=== PATIENT | male | born 1960 | race Caucasian/White ===

== ENCOUNTER 2022-05-24 01:28 | Emergency (ER) | payer SELFPAY ==
[2022-05-24] MEDS ORDERED: ONDANSETRON 4 MG/2 ML VIAL ONE (02:58)
[2022-05-24] MEDS ORDERED: MECLIZINE HCL 12.5 MG TAB ONE (02:58)
[2022-05-24] MEDS ORDERED: NA CHLORIDE 0.9% 1,000 ML ONE (02:59)
[2022-05-24] MEDS ORDERED: FAMOTIDINE 20 MG/2 ML VIAL IV ONE (02:59)
[2022-05-24 03:43] LABS: Absolute Lymphocytes (CBC) 1.2 K/uL (0.7-4.9); Hematocrit 40.7 % (39.6-49.0); Lymphocytes % 18.8 % (15.3-44.8); MPV 7.7 fL (7.6-11.3); RBC Red Blood Cell Count 3.99 M/uL (4.33-5.43)
[2022-05-24 03:49] LABS: Protime INR 0.96
[2022-05-24 04:02] LABS: ALT/SGPT 47 U/L (16-61); AST/SGOT 29 U/L (15-37); Albumin 3.3 g/dL (3.4-5.0); Alkaline Phosphatase 58 U/L (45-117); BUN Blood Urea Nitrogen 11 mg/dL (7-18); Bicarbonate 33 mEq/L (21-32); Bilirubin Total 0.2 mg/dL (0.2-1.0); Creatine Phosphokinase 48 U/L (39-308); Glomerular Filtration Rate 89 ml/min (=/>90); Glucose Level 103 mg/dL (74-106); Magnesium 2.6 mg/dL (1.6-2.4); Potassium 4.2 mEq/L (3.5-5.1); Protein, Total 6.7 g/dL (6.4-8.2); Sodium Level 138 mEq/L (136-145); Troponin High Sensitivity 8.4 pg/mL (<58.9)
--- NOTE | 2022-05-24 04:02 | ER ---
Nurse's Notes [facility] Name: Merrick Joseph Age: 61 yrs Sex: Male : 1960 Arrival Date: 05/24/2022 Time: 01:32 Bed 16 Private MD: Diagnosis: Dizziness and giddiness;Nausea with vomiting, unspecified;Fall on same level, unspecified Presentation: 05/24 02:15 Chief complaint: Chief complaint: Patient states: he is c/o abdominal pain, x 4 days bb with nausea, vomiting and dizziness and he has been falling. 02:15 Coronavirus screen: At this time, the client does not indicate any symptoms associated bb with coronavirus-19. Ebola Screen: No symptoms or risks identified at this time. Initial Sepsis Screen: Does the patient meet any 2 criteria? No. Patient's initial sepsis screen is negative. Does the patient have a suspected source of infection? No. Patient's initial sepsis screen is negative. Risk Assessment: Do you want to hurt yourself or someone else? Patient reports no desire to harm self or others. Onset of symptoms was May 21, 2022. 02:15 Method Of Arrival: Ambulatory bb 02:15 Acuity: KILEY 3 bb Historical: - Allergies: 04:00 No Known Allergies; bb - PMHx: 04:00 TB inactive; emphysema; PTSD; bb - Immunization history:: Pfizer x 4. - Social history:: Smoking status: Patient reports the use of cigarette tobacco products, Patient/guardian denies using alcohol. Screenin:39 [facility] ED Fall Risk Assessment (Adult) History of falling in the last 3 months, bb including since admission Yes- single mechanical fall (1 pt) Confusion or Disorientation No (0 pts) Intoxicated or Sedated No (0 pts) Impaired Gait Yes (1 pt) Score/Fall Risk Level 0 - 2 = Low Risk Oriented to surroundings, Maintained a safe environment. Abuse screen: Denies threats or abuse. Nutritional screening: No deficits noted. Tuberculosis screening: No symptoms or risk factors identified. Assessment: 02:15 General: Appears in no apparent distress. comfortable, well groomed, well developed, pf1 Behavior is calm, cooperative, appropriate for age, quiet. 02:15 Pain: Complains of pain in left upper quadrant and right upper quadrant and C5 and C4 pf1 and lower abdominal pain Pain currently is 8 out of 10 on a pain scale. Neuro: Level of Consciousness is awake, alert, obeys commands, Oriented to person, place, time, situation, Reports dizziness, Patient stated that he fell on Monday due to his vertigo. Cardiovascular: No deficits noted. Capillary refill < 3 seconds Patient's skin is warm and dry. Respiratory: No deficits noted. Airway is patent Trachea midline Respiratory effort is even, unlabored, Respiratory pattern is regular, symmetrical, Breath sounds are clear bilaterally. GI: Abdomen is flat, non-distended, Bowel sounds present X 4 quads. Abd is soft X 4 quads Abdomen is tender to palpation. : No deficits noted. No signs and/or symptoms were reported regarding the genitourinary system. EENT: No deficits noted. No signs and/or symptoms were reported regarding the EENT system. Derm: No deficits noted. No signs and/or symptoms reported regarding the dermatologic system. Musculoskeletal: Reports pain in C5 and C4 since Monday. 03:15 Reassessment: Patient appears in no apparent distress at this time. Patient and/or pf1 family updated on plan of care and expected duration. Pain level reassessed. Patient is alert, oriented x 3, equal unlabored respirations, skin warm/dry/pink. Patient states feeling better. Patient states symptoms have improved. 04:39 Reassessment: Patient is alert, oriented x 3, equal unlabored respirations, skin bb warm/dry/pink. pt verbalized understanding of and agrees to plan of care discharge instructions given. Vital Signs: 02:15 BP 147 / 86; Pulse 61; Resp 18 S; Temp 97.6(O); Pulse Ox 98% on R/A; Weight 53.07 kg bb (R); Height 5 ft. 0 in. (R); Pain 8/10; 03:15 BP 144 / 88; Pulse 62; Resp 16; Pulse Ox 97% on R/A; Pain 5/10; pf1 04:15 BP 145 / 89; Pulse 65; Resp 16; Pulse Ox 97% on R/A; Pain 3/10; pf1 02:15 Body Mass Index 22.85 (53.07 kg, 152.4 cm) bb 02:15 Pain Scale: Adult bb 03:15 Pain Scale: Adult pf1 04:15 Pain Scale: Adult pf1 ED Course: 01:32 Patient arrived in ED. ja2 02:09 Dewey Saenz PA is PHCP. cp 02:09 Abel Schmidt MD is Attending Physician. cp 02:30 Arm band placed on. pf1 02:36 Carly lee, RN is Primary Nurse. pf1 02:53 XRAY Chest (1 view) In Process Unspecified. EDMS 03:14 CT Traumagram (Head C Spine CAP wo con) In Process Unspecified. EDMS 03:21 Inserted saline lock: 20 gauge in left antecubital area, using aseptic technique. Blood ah1 collected. 03:21 Basic Metabolic Panel Sent. ah1 03:21 CBC with Diff Sent. ah1 03:21 LFT's Sent. ah1 03:21 Magnesium Sent. ah1 03:21 PT-INR Sent. ah1 03:21 Troponin HS Sent. ah1 04:00 Triage completed. bb 04:39 No provider procedures requiring assistance completed. IV discontinued, intact, bb bleeding controlled, No redness/swelling at site. Pressure dressing applied. 04:39 Patient has correct armband on for positive identification. bb Administered Medications: 03:20 Drug: NS 0.9% IV 500 ml Route: IV; Rate: bolus; Site: left antecubital; pf1 04:20 Follow up: Response: No adverse reaction; Marked relief of symptoms; IV Status: pf1 Completed infusion; IV Intake: 500ml 03:20 Drug: Ondansetron IVP 4 mg Route: IVP; Site: left antecubital; pf1 04:20 Follow up: Response: No adverse reaction; Marked relief of symptoms; Nausea is decreasedpf1 03:20 Drug: Famotidine IVP 20 mg Route: IVP; Site: left antecubital; pf1 04:20 Follow up: Response: No adverse reaction; Marked relief of symptoms; Pain is decreased pf1 03:20 Drug: Meclizine PO 25 mg Route: PO; pf1 04:20 Follow up: Response: No adverse reaction; Marked relief of symptoms pf1 03:30 CANCELLED (Physician Discretion): morphine IVP or IV 2 mg IVP once over 4 mins cp 04:28 CANCELLED (Patient Refused): Diazepam IVP 2 mg IVP once pf1 04:29 Not Given (Patient Refused): fentaNYL (PF) IVP 25 mcg IVP once pf1 06:17 Not Given (Patient was dischargedd): NS 0.9% IV 500 ml IV at 125 calculated rate pf1 continuous Medication: 04:39 VIS not applicable for this client. bb Intake: 04:20 IV: 500ml; Total: 500ml. pf1 Outcome: 04:01 Discharge ordered by . sp3 04:39 Discharged to home ambulatory. bb 04:39 Condition: stable 04:39 Discharge instructions given to patient, Instructed on discharge instructions, follow up and referral plans. medication usage, Demonstrated understanding of instructions, follow-up care, medications, Prescriptions given X 2. 04:42 Patient left the ED. bb Signatures: Dispatcher [employer] EDMS Brianne Davis RN RN bb Dewey Saenz PA PA cp Patel, Setul, MD MD sp3 Yovana Rodriguez Pamala, RN RN pf1 Madeleine Yoon [facility] Corrections: (The following items were deleted from the chart) 04:00 03:56 Chief complaint: bb bb 04:28 04:19 fentaNYL (PF) IVP 25 mcg IVP in left antecubital pf1 pf1 04:28 04:19 Diazepam IVP 2 mg IVP in left antecubital pf1 pf1
--- NOTE | 2022-05-24 04:02 | EDPHYS ---
Physician Documentation [facility] Name: Merrick Joseph Age: 61 yrs Sex: Male : 1960 Arrival Date: 05/24/2022 Time: 01:32 Bed 16 Private MD: ED Physician Abel Schmidt HPI: 05/24 02:33 This 61 yrs old Male presents to ER via Unassigned with complaints of Dizziness, cp Abdominal Pain, Nausea, Repeated Falls, Cough. 02:33 The patient presents with dizziness, generalized weakness, lightheadedness, feeling off cp balance, sense of spinning. Onset: The symptoms/episode began/occurred 7 day(s) ago. Context: patient reports history of vertigo. takes prescribed Meclizine but has been unable to afford medication. Associated signs and symptoms: Pertinent positives: abdominal pain, chest pain, nausea, vomiting, 2 episodes of falling with episode this past Monday in which he struck face against ground and other episode he was caught before striking ground. 02:33 Patient's baseline: Neuro: alert and fully oriented, Motor: no deficits, Ambulation: cp walks without assistance, Speech: normal, The patient has a previous history of vertigo. Historical: - Allergies: 04:00 No Known Allergies; bb - PMHx: 04:00 TB inactive; emphysema; PTSD; bb - Immunization history:: Pfizer x 4. - Social history:: Smoking status: Patient reports the use of cigarette tobacco products, Patient/guardian denies using alcohol. ROS: 02:35 Constitutional: Positive for poor PO intake, Negative for body aches, chills, fever. cp 02:35 Eyes: Positive for blurry vision, Negative for discharge, pain, redness. cp 02:35 ENT: Negative for drainage from ear(s), ear pain, sore throat, difficulty swallowing, difficulty handling secretions. 02:35 Cardiovascular: Positive for chest pain, Negative for edema, palpitations. 02:35 Respiratory: Positive for cough, Negative for wheezing. 02:35 Abdomen/GI: Positive for abdominal pain, nausea and vomiting, Negative for diarrhea, constipation, black/tarry stool, rectal bleeding. 02:35 Back: Positive for pain at rest, pain with movement. 02:35 Skin: Negative for cellulitis, rash. 02:35 Neuro: Positive for dizziness, headache, weakness, Negative for altered mental status, syncope. 02:35 All other systems are negative. Exam: 02:40 Constitutional: The patient appears in no acute distress, alert, awake, cp non-diaphoretic, non-toxic, well developed, well nourished, uncomfortable. 02:40 Head/Face: Normocephalic, atraumatic. cp 02:40 Eyes: Pupils: constricted, bilaterally, Extraocular movements: intact throughout, Conjunctiva: injected, bilaterally, Lids and lashes: appear normal, bilaterally, Nystagmus: nystagmus with fast component noted, bilaterally, lateral. 02:40 ENT: External ear(s): are unremarkable, Ear canal(s): are normal, clear, TM's: dullness, bilaterally, Nose: is normal, Mouth: Lips: dry, Oral mucosa: moist, Posterior pharynx: Airway: no evidence of obstruction, patent. 02:40 Neck: C-spine: C-collar placed in ED, vertebral tenderness, that is mild, appreciated at C4 and C5, ROM/movement: pain, with any movement. 02:40 Chest/axilla: Inspection: normal, Palpation: crepitus, is not appreciated, tenderness, that is moderate, of the right lateral anterior chest, left lateral anterior chest, right lateral posterior chest and left lateral posterior chest. 02:40 Cardiovascular: Rate: normal, Rhythm: regular, Pulses: Pulses are 2+ in right radial artery and left radial artery. Edema: is not appreciated, JVD: is not appreciated. 02:40 Respiratory: the patient does not display signs of respiratory distress, Respirations: normal, no use of accessory muscles, no retractions, labored breathing, is not present, Breath sounds: are clear throughout, no decreased breath sounds, no stridor, no wheezing. 02:40 Abdomen/GI: Inspection: abdomen appears normal, Bowel sounds: active, all quadrants, Palpation: soft, in all quadrants, moderate abdominal tenderness, in the right upper quadrant and left upper quadrant. 02:40 Back: pain, that is moderate, ROM is painful, with all movement. cp 02:40 Skin: cellulitis, is not appreciated, no rash present. 02:40 Neuro: Orientation: to person, place \T\ time. Mentation: is normal, Cerebellar function: Romberg testing is negative, normal finger to nose testing, heel to singletary testing is normal, Motor: moves all fours, general weakness with no focal deficits, Sensation: no obvious gross deficits. 02:50 ECG was reviewed by the Attending Physician. cp Vital Signs: 02:15 BP 147 / 86; Pulse 61; Resp 18 S; Temp 97.6(O); Pulse Ox 98% on R/A; Weight 53.07 kg bb (R); Height 5 ft. 0 in. (R); Pain 8/10; 03:15 BP 144 / 88; Pulse 62; Resp 16; Pulse Ox 97% on R/A; Pain 5/10; pf1 04:15 BP 145 / 89; Pulse 65; Resp 16; Pulse Ox 97% on R/A; Pain 3/10; pf1 02:15 Body Mass Index 22.85 (53.07 kg, 152.4 cm) bb 02:15 Pain Scale: Adult bb 03:15 Pain Scale: Adult pf1 04:15 Pain Scale: Adult pf1 MDM: 02:09 Patient medically screened. cp 02:45 Differential diagnosis: cardiac arrhythmia, CVA, generalized weakness, GI bleed, head cp injury, hypovolemia, idiopathic dizziness, TIA, vertigo. 03:30 Transition of care: After a detail discussion of the patient's case, care is cp transferred to Abel Schmidt MD. 03:56 Data reviewed: vital signs, lab test result(s), radiologic studies. sp3 04:01 ED course: Patient much improved with meclizine. C-collar was removed and CT scans and sp3 imaging reviewed. All is negative and we will safely discharge patient home at this time with p.o. meclizine and follow-up with PCP. This is all likely peripheral vertigo with no central component.. 05/24 02:31 Order name: Basic Metabolic Panel cp 05/24 02:31 Order name: CBC with Diff cp 05/24 02:31 Order name: LFT's cp 05/24 02:31 Order name: Magnesium cp 05/24 02:31 Order name: PT-INR cp 05/24 02:31 Order name: Troponin HS cp 05/24 02:31 Order name: Urinalysis W/Microscopic cp 05/24 02:31 Order name: CK cp 05/24 03:06 Order name: ETOH Level cp 05/24 03:06 Order name: UDS cp 05/24 02:31 Order name: XRAY Chest (1 view) cp 05/24 02:31 Order name: CT Traumagram (Head C Spine CAP wo con) cp 05/24 02:31 Order name: EKG; Complete Time: 02:32 cp 05/24 02:31 Order name: Cardiac monitoring; Complete Time: 02:56 cp 05/24 02:31 Order name: EKG - Nurse/Tech; Complete Time: 02:56 cp 05/24 02:31 Order name: IV Saline Lock; Complete Time: 03:21 cp 05/24 02:31 Order name: Labs collected and sent; Complete Time: 03:21 cp 05/24 02:31 Order name: O2 Per Protocol; Complete Time: 02:56 cp 05/24 02:31 Order name: O2 Sat Monitoring; Complete Time: 02:56 cp EC:50 Rate is 61 beats/min. Rhythm is regular. VA interval is normal. QRS interval is normal. cp QT interval is normal. T waves are Inverted in lead aVR. Interpreted by me. Reviewed by me. Administered Medications: 03:20 Drug: NS 0.9% IV 500 ml Route: IV; Rate: bolus; Site: left antecubital; pf1 04:20 Follow up: Response: No adverse reaction; Marked relief of symptoms; IV Status: pf1 Completed infusion; IV Intake: 500ml 03:20 Drug: Ondansetron IVP 4 mg Route: IVP; Site: left antecubital; pf1 04:20 Follow up: Response: No adverse reaction; Marked relief of symptoms; Nausea is decreasedpf1 03:20 Drug: Famotidine IVP 20 mg Route: IVP; Site: left antecubital; pf1 04:20 Follow up: Response: No adverse reaction; Marked relief of symptoms; Pain is decreased pf1 03:20 Drug: Meclizine PO 25 mg Route: PO; pf1 04:20 Follow up: Response: No adverse reaction; Marked relief of symptoms pf1 03:30 CANCELLED (Physician Discretion): morphine IVP or IV 2 mg IVP once over 4 mins cp 04:28 CANCELLED (Patient Refused): Diazepam IVP 2 mg IVP once pf1 04:29 Not Given (Patient Refused): fentaNYL (PF) IVP 25 mcg IVP once pf1 06:17 Not Given (Patient was dischargedd): NS 0.9% IV 500 ml IV at 125 calculated rate pf1 continuous Disposition: 04:01 Co-signature as Attending Physician, Abel Schmidt MD. I agree with the assessment and sp3 plan of care. I reviewed the patient's care provided by Advanced Practice Provider \T\ agree w/ the diagnosis \T\ care plan. I personally saw the pt \T\ performed a substantive portion of the visit, incldng all aspects of the (History/Exam/Medical Decision Making). Disposition Summary: 05/24/22 04:01 Discharge Ordered Location: Home sp3 Problem: an acute exacerbation sp3 Symptoms: have improved sp3 Condition: Stable sp3 Diagnosis - Dizziness and giddiness sp3 - Nausea with vomiting, unspecified sp3 - Fall on same level, unspecified sp3 Followup: cp - With: Private Physician - When: 2 - 3 days - Reason: Recheck today's complaints Discharge Instructions: - Discharge Summary Sheet cp Forms: - Medication Reconciliation Form sp3 - Thank You Letter sp3 - Antibiotic Education sp3 - Prescription Opioid Use sp3 Prescriptions: - Meclizine 25 mg Oral Tablet - take 1 tablet by ORAL route every 8 hours As needed; 30 tablet; Refills: 0, cp Product Selection Permitted - Zofran 4 mg Oral Tablet - take 1 tablet by ORAL route every 12 hours As needed; 20 tablet; Refills: 0, cp Product Selection Permitted Signatures: Dispatcher [employer] Brianne Menard RN RN bb Dewey Saenz PA PA cp Abel Schmidt MD MD sp3 Carly lee RN RN pf1 Corrections: (The following items were deleted from the chart) 03:08 02:40 Eyes: Pupils: constricted, bilaterally, Extraocular movements: intact throughout, cp Conjunctiva: injected, bilaterally, Lids and lashes: appear normal, bilaterally, cp 03:30 03:30 morphine IVP or IV 2 mg IVP once over 4 mins ordered. cp cp 04:28 03:30 Diazepam IVP 2 mg IVP once ordered. cp pf1 04:28 04:19 Diazepam IVP 2 mg IVP once given. pf1 pf1 04:28 04:28 Diazepam IVP 2 mg IVP once ordered. pf1 pf1
[2022-05-24 04:09] LABS: Bilirubin Direct < 0.1 mg/dL (0-0.2)
[2022-05-24] MEDS ORDERED: FENTANYL CITR 100 MCG/2 ML ONE (04:13)
[2022-05-24] MEDS ORDERED: DIAZEPAM 10 MG/2 ML INJ SYRINGE ONE (04:14)
[2022-05-24 04:22] LABS: Barbiturates NEGATIVE (NEGATIVE); Benzodiazepines POSITIVE (NEGATIVE); Cocaine NEGATIVE (NEGATIVE); METHAMPHETAM NEGATIVE (NEGATIVE); Methadone NEGATIVE (NEGATIVE); Opiates NEGATIVE (NEGATIVE); Phencyclidine NEGATIVE (NEGATIVE); THC Cannibis NEGATIVE (NEGATIVE)
[2022-05-24 04:25] LABS: Specific Gravity 1.014 (1.005-1.030); Urine Bacteria None Seen /HPF (<20); Urine Bilirubin NEGATIVE (Negative); Urine Blood Negative (Negative); Urine Clarity Clear (Clear); Urine Color Light-Yellow (Yellow); Urine Glucose NEGATIVE (Negative); Urine Protein NEGATIVE (Negative); Urine RBC <5 /HPF (None Seen); Urine Urobilinogen Normal (Normal)
[2022-05-24 13:04] VITALS: BP 147/86; TEMP 97.6; O2SAT 98
--- NOTE | 2022-05-24 15:27 | RAD REPORT ---
EXAM DESCRIPTION: CT - Head C Spine Cap Wo Con - 05/24/2022 6:47 am CLINICAL HISTORY: The patient is 61 years old and is Male; fall 3 days ago TECHNIQUE: Axial computed tomography images of the head/brain and cervical spine without intravenous contrast. Sagittal and coronal reformatted images were created and reviewed. This CT exam was pe rformed using one or more of the following dose reduction techniques: automated exposure control, a djustment of the mA and/or kV according to patient size, and/or use of iterative reconstruction techn ique. COMPARISON: No relevant prior studies available. FINDINGS: BRAIN: Encephalomalacia within the right temporoparietal lobe is present. The muniz-white differentiation is maintained. No intracranial hemorrhage, mass effect, midline shift is seen. There are no extra-axial fluid collections. VENTRICLES: Unremarkable. No ventriculomegaly. SKULL: No acute fracture. SINUSES: Unremarkable as visualized. No acute sinusitis. MASTOID AIR CELLS: Unremarkable as visualized. No mastoid effusion. VERTEBRAE: The vertebral body heights and alignment are maintained. No acute fracture. DISCS/SPINAL CANAL/NEURAL FORAMINA: Minimal intervertebral disc space narrowing with osteophyte formation most prominent at C4-C5 and C5-C6 is present. There is no significant canal stenosis or karlie ral foraminal narrowing. SOFT TISSUES: The soft tissues are normal. LUNG APICES: Unremarkable as visualized. IMPRESSION: 1. No acute intracranial findings. 2. No fracture or malalignment of the cervical spine. Mild spondylosis. EXAM DESCRIPTION: CT Chest, Abdomen and Pelvis Without Intravenous Contrast CLINICAL HISTORY: The patient is 61 years old and is Male; fall 3 days ago TECHNIQUE: Axial computed tomography images of the chest, abdomen and pelvis without intravenous con trast. Sagittal and coronal reformatted images were created and reviewed. This CT exam was perfor med using one or more of the following dose reduction techniques: automated exposure control, adjus tment of the mA and/or kV according to patient size, and/or use of iterative reconstruction technique . COMPARISON: No relevant prior studies available. FINDINGS: CHEST: LUNGS: Pertinent densities in the lung bases are noted. Calcified granuloma within the right low er lobe is present. The lungs are otherwise clear. PLEURAL SPACE: Unremarkable. No significant effusion. No pneumothorax. HEART: No cardiomegaly. No pericardial effusion. ABDOMEN: LIVER: Homogeneous without focal mass. GALLBLADDER AND BILE DUCTS: No calcified stones. No ductal dilation. PANCREAS: Unremarkable. No ductal dilation. SPLEEN: Splenic granuloma is present. A splenule is present within the left upper quadrant. ADRENALS: Unremarkable. No mass. KIDNEYS AND URETERS: No obstructing stones. No hydronephrosis. No perinephric fluid. STOMACH AND BOWEL: The stomach is minimally distended with fluid and food contents. The small [place]ol[place] wel is relatively normal in caliber. A moderate amount stool is present throughout colon. There is no mucosal thickening or evidence of obstruction. PELVIS: APPENDIX: The appendix is normal in caliber without surrounding inflammation. BLADDER: Unremarkable. No stones. REPRODUCTIVE: Unremarkable as visualized. CHEST, ABDOMEN and PELVIS: INTRAPERITONEAL SPACE: Unremarkable. No significant fluid collection. No free air. BONES/JOINTS: There is no acute fracture of the visualized axial and appendicular skeleton. The vertebral body heights and alignment are maintained. SOFT TISSUES: The soft tissues are normal. VASCULATURE: Atherosclerosis of the vasculature is present. The vessels are normal in caliber. No aortic aneurysm. LYMPH NODES: Unremarkable. No enlarged lymph nodes. IMPRESSION: No evidence of solid organ injury or traumatic bony findings on this noncontrasted CT of the chest, abdomen, and pelvis. Electronically signed by: Sonia Berg MD 05/24/2022 3:35 AM CDT Due to temporary technical issues with the PACS/Fluency reporting system, reports are being signed by the in house radiologists without review as a courtesy to insure prompt reporting. The interpreting radiologist is fully responsible for the content of the report.
--- NOTE | 2022-05-24 15:45 | RAD REPORT ---
EXAM DESCRIPTION: RAD - Chest Single View - 05/24/2022 2:50 am CLINICAL HISTORY: The patient is 61 years old and is Male; Cough;Chest pain TECHNIQUE: Frontal view of the chest. COMPARISON: No relevant prior studies available. FINDINGS: LUNGS: Calcified granuloma within the right upper lobe is present. The lungs are otherwi se well-inflated and clear. PLEURAL SPACE: Unremarkable. No pneumothorax. HEART: Unremarkable. No cardiomegaly. MEDIASTINUM: Unremarkable. BONES/JOINTS: Unremarkable. UPPER ABDOMEN: Unremarkable as visualized. IMPRESSION: No acute cardiopulmonary process. Electronically signed by: Sonia Berg MD 05/24/2022 3:14 AM CDT Due to temporary technical issues with the PACS/Fluency reporting system, reports are being signed by the in house radiologists without review as a courtesy to insure prompt reporting. The interpreting radiologist is fully responsible for the content of the report.
--- NOTE | 2022-05-25 17:26 | EKG ---
Test Date: 2022-05-24 Test Time: 02:46:57 [facility]: [facility] MEASUREMENT RESULTS: Intervals: Rate: 61 MT: 138 QRSD: 84 QT: 424 QTc: 426 [place]: P: 52 MT: 138 QRS: 48 T: 50 INTERPRETIVE STATEMENTS: Normal sinus rhythm Septal infarct, age undetermined Abnormal ECG No previous ECG available for comparison Electronically Signed On 05-25-22 17:22:15 CDT by Todd Lin
== END 2022-05-24 04:42 | disposition home or self-care (01) ==
LOC: ER 01:28
DX: R42 Dizziness and giddiness (principal); R11.2 Nausea with vomiting, unspecified; W18.30XA Fall on same level, unspecified, initial encounter
CPT/HCPCS: 36415; 70450; 71045; 71250; 72125; 80048; 80076; 80307; 81001; 82550; 83735; 84484; 85025; 85610; 93005; 96361; 96374; 96375; 99284; G0480; J2405; J3010; J3360; J7030; J8597